=== PATIENT | male | born 1970 | race Caucasian/White ===

== ENCOUNTER 2019-05-15 15:35 | Outpatient (CLI) | payer OTHER, SELFPAY ==
[2019-05-15 15:48] LABS: Basophils Percent Auto 0.6 % (0.2-1.2); Eosinophils Absolute Auto 0.2 K/mm3 (0-0.3); Eosinophils Percent Auto 2.5 % (0-4.4); Hemoglobin 15.1 g/dL (14.0-18.0); Immature Granulocyte Absolute 0.06 K/mm3 (0.00-0.031); Immature Granulocyte Percent A 0.9 % (0-0.5); Lymphocytes Absolute Auto 1.91 K/mm3 (0.9-3.2); Lymphocytes Percent Auto 29.5 % (18.3-44.2); Mean Corpuscular HGB Conc 35.1 g/dl (32-36); Mean Corpuscular Hemoglobin 32.6 pg (26-34); Mean Corpuscular Volume 92.9 fl (80-100); Mean Platelet Volume 9.6 fl (7.4-10.4); Monocytes Absolute Auto 0.7 K/mm3 (0.1-0.6); Monocytes Percent Auto 10.3 % (2.6-8.5); Neutrophils Absolute Auto 3.6 K/mm3 (1.3-6.7); Neutrophils Percent Auto 56.2 % (45.5-73.1); Platelet Count Result 152 k/mm3 (150-375); Red Blood Count 4.63 M/mm3 (4.6-6.20); Red Cell Distribution Width 12.5 % (11.5-14.5); White Blood Count 6.5 K/mm3 (4.5-10.0)
[2019-05-15 16:36] LABS: Iron 124 ug/dL (49-181)
[2019-05-15 16:39] LABS: Alanine Aminotransferase 21 U/L (4-50); Albumin Level 4.5 g/dL (3.5-5.1); Alkaline Phosphatase 47 U/L (38-126); Aspartate Amino Transferase 25 U/L (17-59); Bilirubin,Total 0.9 mg/dL (0.2-1.3); Blood Urea Nitrogen 16 mg/dL (9-20); Carbon Dioxide 27 mmol/L (22-30); Chloride 99 mmol/L (98-107); Estimated Glomerular Filt Rate > 60; Glucose 91 mg/dL (75-110); Lactate Dehydrogenase 381 U/L (313-618); Potassium 4.4 mmol/L (3.4-5.0); Sodium 137 mmol/L (137-145)
[2019-05-15 16:50] LABS: Percent Iron Saturation 40 % (20-50)
[2019-05-18 23:16] LABS: Platelet Antibody, Direct IgG NEGATIVE (NEGATIVE)
== END 2019-05-15 15:36 | disposition home or self-care (01) ==
LOC: ANHLAB 15:37
PROVIDERS: PCP Family Medicine; Visit Provider Internal Medicine Hematology & Oncology
DX: D69.59 Other secondary thrombocytopenia (principal)
CPT/HCPCS: 36415; 80053; 82607; 82728; 83540; 83550; 83615; 85025; 86023

== ENCOUNTER 2019-05-25 09:16 | Outpatient (CLI) | payer OTHER, SELFPAY ==
--- NOTE | ~2019-05-25 | US_ITS ---
EXAMINATION: US abdomen complete DATE: 05/25/2019 09:47 INDICATION: Thrombocytopenia TECHNIQUE: Multiple grayscale and Doppler ultrasound images of the abdomen were obtained. COMPARISON: None available FINDINGS: The head and and body of the pancreas are normal. The pancreatic tail is obscured by bowel gas. The liver is normal with normal echogenicity and echotexture. No surface nodularity. Normal hep atopetal flow in the main portal vein. The gallbladder is normal with no abnormal wall thickening, pe richolecystic fluid or stones. The normal common bile duct measures 6 mm. There was no sonographic Mu rphy sign. The visualized portions of the aorta and inferior vena cava are normal. The right kidney measures 11.2 x 4.7 x 5.2 cm. The left kidney measures 12.9 x 5.9 x 5.7 cm. The kidn eys demonstrate normal parenchymal echogenicity. There is no hydronephrosis. The mildly enlarged sple en measures 13.5 cm. IMPRESSION: 1. Mild splenomegaly of unclear significance. Reviewed, dictated and finalized at location A.
== END 2019-05-25 09:17 | disposition home or self-care (01) ==
PROVIDERS: PCP Family Medicine; Visit Provider Internal Medicine Hematology & Oncology
DX: D69.59 Other secondary thrombocytopenia (principal)
CPT/HCPCS: 76700

== ENCOUNTER 2019-08-20 17:54 | Outpatient (CLI) | payer OTHER, SELFPAY ==
[2019-08-26 05:15] LABS: Testosterone Free 35.6 pg/mL (46.0-224.0)
== END 2019-08-20 17:55 | disposition home or self-care (01) ==
PROVIDERS: PCP Family Medicine; Visit Provider Family Medicine
DX: R79.89 Other specified abnormal findings of blood chemistry (principal)
CPT/HCPCS: 36415; 84402

== ENCOUNTER 2021-03-25 10:25 | Outpatient (CLI) | payer OTHER, SELFPAY ==
--- NOTE | ~2021-03-25 | XR_ITS ---
EXAMINATION: XR shoulder RT min 2V DATE: 03/25/2021 10:39 INDICATION: Right shoulder pain. TECHNIQUE: 4 views of right shoulder were obtained. COMPARISON: None. FINDINGS: Bone alignment is normal. No fracture. There is mild osteoarthritis of glenohumeral joint a nd acromioclavicular joint. IMPRESSION: 1. Mild polyarticular osteoarthritis. Reviewed, dictated and finalized at location B. ECURITY OFFICER
--- NOTE | ~2021-03-25 | XR_ITS ---
EXAMINATION: XR shoulder LT min 2V DATE: 03/25/2021 10:39 INDICATION: Left shoulder pain. TECHNIQUE: 4 views of left shoulder were obtained. COMPARISON: None. FINDINGS: Bone alignment is normal. No fracture. There is mild osteoarthritis of glenohumeral joint a nd acromioclavicular joint. IMPRESSION: 1. Mild polyarticular osteoarthritis. Reviewed, dictated and finalized at location B. ATIONS INSPECTOR
== END 2021-03-25 10:26 ==
PROVIDERS: Visit Provider Physician Assistant
DX: M25.519 Pain in unspecified shoulder (principal); M19.012 Primary osteoarthritis, left shoulder; M19.011 Primary osteoarthritis, right shoulder
CPT/HCPCS: 73030

== ENCOUNTER 2022-09-12 13:12 | Observation (INO) | payer OTHER, SELFPAY ==
--- NOTE | ~2022-09-12 | XR_ITS ---
EXAMINATION: XR chest 2V DATE: 09/12/2022 14:07 INDICATION: Shortness of breath while walking TECHNIQUE: PA and lateral views of the chest were obtained. COMPARISON: Chest radiograph dated 04/01/2019 FINDINGS: Opacities at the lingula which could represent atelectasis and/or pneumonia. No pulmonary edema, pleu ral effusion or pneumothorax. Heart size is normal. IMPRESSION: 1. Lingular opacities which could represent atelectasis or pneumonia. Reviewed, dictated and finalized at location B.
--- NOTE | ~2022-09-12 | US_ITS ---
EXAMINATION: US carotid duplex BI DATE: 09/14/2022 08:04 INDICATION: Lightheadedness. TECHNIQUE: Grayscale, color Doppler, and pulsed Doppler images of the cervical carotid arteries were obtained. The degree of vessel stenosis is placed in one of the following categories: normal, <50%, 5 0-69%, >=70% but less than near-occlusion, near-occlusion, or total occlusion. Note that percent sten osis relative to normal distal artery lumen diameter is indirectly measured from velocity measurement s as described by Clifton, et al. Radiology 2003; 229:340-346. COMPARISON: None. FINDINGS: RIGHT: The right common carotid artery (CCA) peak systolic velocity (PSV) is 100 cm/s. The right internal ca rotid artery (ICA) PSV is 74 cm/s. The right ICA end-diastolic velocity (EDV) is 34 cm/s. The right I CA/CCA PSV ratio is 0.7. Grayscale and color Doppler images yield an estimate of <50% diameter reduct ion from plaque in the ICA. There is antegrade flow in the right vertebral artery. LEFT: The left CCA PSV is 110 cm/s. The left ICA PSV is 97 cm/s. The left ICA EDV is 37 cm/s. The left ICA/ CCA PSV ratio is 0.9. Grayscale and color Doppler images yield an estimate of <50% diameter reduction from plaque in the ICA. There is antegrade flow in the left vertebral artery. IMPRESSION: 1. <50% stenosis in the right internal carotid artery. 2. <50% stenosis in the left internal carotid artery. Reviewed, dictated and finalized at location A.
[2022-09-12 13:36] VITALS: BP 138/83; PULSE 85; RESP 20; TEMP 36.4; O2SAT 99
--- NOTE | 2022-09-12 13:41 | ECG_ITS ---
Measurements Intervals Roberts Rate: 77 P: 45 CO: 154 QRS: 30 QRSD: 90 T: 31 QT: 342 QTc: 388 Interpretive Statements SINUS RHYTHM NORMAL ECG COMPARED TO ECG 02/15/2019 17:36:11 SINUS RHYTHM NOW PRESENT Electronically Signed On 09-12-2022 13:59:20 CDT by Ok Bhatt D.O.
[2022-09-12 14:00] LABS: Basophils Percent Auto 0.6 % (0.2-1.2); Eosinophils Absolute Auto 0.1 K/mm3 (0-0.3); Eosinophils Percent Auto 1.1 % (0-4.4); Hematocrit 45.1 % (42.0-52.0); Immature Granulocyte Absolute 0.04 K/mm3 (0.00-0.031); Immature Granulocyte Percent A 0.6 % (0-0.5); Lymphocytes Absolute Auto 1.35 K/mm3 (0.9-3.2); Mean Corpuscular HGB Conc 35.5 g/dl (32-36); Mean Corpuscular Hemoglobin 31.5 pg (26-34); Mean Corpuscular Volume 88.8 fl (80-100); Mean Platelet Volume 9.9 fl (7.4-10.4); Monocytes Absolute Auto 0.4 K/mm3 (0.1-0.6); Monocytes Percent Auto 6.1 % (2.6-8.5); Neutrophils Absolute Auto 4.5 K/mm3 (1.3-6.7); Neutrophils Percent Auto 70.6 % (45.5-73.1); Platelet Count Result 161 k/mm3 (150-375); Red Blood Count 5.08 M/mm3 (4.6-6.20); Red Cell Distribution Width 12.4 % (11.5-14.5); White Blood Count 6.4 K/mm3 (4.5-10.0)
[2022-09-12 14:09] LABS: Alanine Aminotransferase 39 U/L (6-50); Albumin Level 4.6 g/dL (3.5-5.1); Alkaline Phosphatase 51 U/L (38-126); Anion Gap 8 mmol/L (8-16); Aspartate Amino Transferase 30 U/L (17-59); Blood Urea Nitrogen 13 mg/dL (9-20); Calcium 9.2 mg/dL (8.4-10.2); Carbon Dioxide 25 mmol/L (22-30); Chloride 106 mmol/L (98-107); Estimated CRCL calculation 90 ml/min; Estimated Glomerular Filt Rate > 60; Glucose 132 mg/dL (65-110); Potassium 4.5 mmol/L (3.4-5.0); Sodium 139 mmol/L (137-145)
--- NOTE | 2022-09-12 15:22 | ED.SOB ---
HPI - SOB/Dyspnea General Chief Complaint: Shortness of Breath/Dyspnea Stated Complaint: sob Time Seen by Provider: 09/12/22 15:01 History of Present Illness HPI Narrative: Patient is a 52-year-old male with a history of hypertension presenting with exertional shortness of breath. Patient states that he is very active at baseline. He was walking some trails yesterday when he suddenly started to feel strange. States that he became very short of breath and lightheaded. States that he felt that he was about to . He called 911 who advised him to try to rest while they attempted to find him on the trail. States that he started to walk slowly towards his house and he started to feel better so he declined EMS transport. States that he checked his vital signs when he got home and his heart rate was around 130 and stayed around 130 for at least an hour. States that he rested for the rest of the day and felt okay. This morning, he and his went on a very short walk and he again had recurrence of severe exertional shortness of breath and lightheadedness. They went back to the house decided to come in for evaluation. No chest pain, cough, fevers, abdominal pain, back pain, numbness or weakness, vomiting, diarrhea, leg swelling. He states that he does have a strong family history of cardiac disease. Related Data Home Medications Medication Instructions Recorded Confirmed aspirin 81 mg tablet,delayed 81 mg PO DAILY 12/31/20 09/12/22 release (Adult Low Dose Aspirin) cholecalciferol (vitamin D3) 25 25 mcg PO DAILY 12/31/20 09/12/22 mcg (1,000 unit) capsule nnvdjsxx-fymmzyku-rjbvh acid 400 1 tablet PO DAILY 12/31/20 09/12/22 mcg-vit K 20 mcg-lycop 300 mcg tablet (One-A-Day Men's Multivitamin) Allergies Allergy/AdvReac Type Severity Reaction Status Date / Time No Known Allergies Allergy Mild Verified 09/12/22 18:05 Review of Systems Review of Systems: All systems reviewed & are unremarkable except as noted in HPI and below PMFSH Past Medical History Medical History Acid reflux Acute bilateral low back pain without sciatica Arthritis DJD of shoulder Erectile dysfunction Hypertension Left shoulder pain Palpitations Right shoulder pain Surgical History Surgical History No pertinent past surgical history Family History Family History (Updated 09/12/22 @ 17:57 by Karlene Bhatti RN) Sibling Family history of cardiovascular disease Diabetes mellitus Family history of coronary artery disease Arthritis Father Family history of cardiovascular disease Acute myocardial infarction Hypertension Heart disease Son Asthma Social History Social History Smoking packs per day: 0.5 Smoking cigarettes per day: 10.0 Years smoked: 2 Smoking pack-years: 1.00 Smoking status: Former smoker Tobacco type: cigarettes Second hand tobacco smoke exposure: No Smoking end date: 03/13/93 Alcohol intake: current Drinks per week: 12 Alcohol use details: Patient states he drinks maybe 7 drinks per week including the weekends. Substance use: never Substance use type: does not use Lack of Transportation: No Lack of Food: Never True Current Housing: I Have Housing Concerned About Future Housing: No Difficulty Paying Gas/Electric Bills: No Difficulty Paying for Meds: No Currently Unemployed: No Education: Associate Degree Difficulty w/ Childcare or Family Care: No Additional living arrangements comments: Daughter lives at home with patient. Spiritual care concerns: No Exam Narrative: GENERAL: Well-appearing, well-nourished, and in no acute distress. Pleasant and cooperative HEAD: Normocephalic, atraumatic. EYES: PERRLA and EOMI. ENT: Nares clear, no rhinorrhea or epistaxis. Mucous membranes mo
[2022-09-12] MEDS: SODIUM CHLORIDE 0.9% IV 1,000 ML 999 ML IV CONT (15:55)
[2022-09-12 16:25] VITALS: BP 133/77; PULSE 78; RESP 16; O2SAT 100
[2022-09-12 16:25] LABS: Magnesium 2.2 mg/dL (1.6-2.3)
[2022-09-12 16:27] LABS: INR 1.1
[2022-09-12 16:32] LABS: D Dimer 0.27 ug/mL (<0.48)
[2022-09-12 16:38] LABS: NT Pro B Type Natriuretic Pept < 20 pg/mL (19.9-100); Troponin I < 0.012 ng/mL (0.000-0.034)
[2022-09-12 16:53] LABS: Troponin I < 0.012 ng/mL (0.000-0.034)
--- NOTE | 2022-09-12 17:13 | PC.NURSE ---
Meal tray ordered.
[2022-09-12 17:45] VITALS: BMI 30.2
--- NOTE | 2022-09-12 17:45 | PC.NURSE ---
This patient, Cole Hernandez, was admitted to 3 [facility] Surg Room 312-01. Patient/family oriented to hospital policies and general routines including ID bracelet, bed and alarms, visiting hours, pain management, procedures, bathroom and other care routines, personal items, smoking policy, room service/diet, and visiting hours. Information on how to activate the Rapid Response Team has been discussed. Patient/Family are encouraged to report perceived risks to care and to ask questions if they do not understand what they are told or what they should do.
[2022-09-12 19:03] VITALS: BP 147/81; PULSE 66; RESP 20; TEMP 36.2; O2SAT 98
[2022-09-12 20:00] VITALS: PULSE 74
[2022-09-12 20:16] LABS: Troponin I 0.014 ng/mL (0.000-0.034)
[2022-09-12 21:17] VITALS: BP 142/85; PULSE 70; RESP 18; TEMP 36.2; O2SAT 97
[2022-09-12 22:45] VITALS: O2SAT 96
--- NOTE | 2022-09-12 22:50 | PM.IMHP ---
H&P: HPI History of Present Illness Date/Time: 09/12/22 19:00 Chief Complaint: Shortness of breath and racing heart. Narrative: This is a very pleasant 52-year-old gentleman with hypertension who presented to the emergency department via private vehicle from home for evaluation of shortness of breath and racing heart. The patient provides the following history. His significant other provides additional information, with the patient's permission. He is very active at baseline and he in his girlfriend frequently go on miles long walks. Yesterday after he sat out for 3 mi walk and about 3/4 of a mi into the walk he began to feel unwell with vague symptoms ?I just felt off.? He felt lightheaded, his heart was racing and pounding, and his breathing was shallow and rapid. It came on so suddenly and he was worried that he was having a heart attack so he called 911. He was on a walking trail and it was difficult for them to locate him; he was able to get off of the trail and to his subdivision at which time he felt better. He declined EMS at that time and went home to rest. He checked his vital signs when he got home and blood pressure was 144/91. His pulse was regular but in the 130s which is highly unusual for him. Baseline heart rate is about 60 and when walking usually it is not over 80-90 beats per minute. His girlfriend came over after the event and she reports that he looked weak and pale. With rest he felt a bit better this morning and in fact they decided to try a walk this morning however within a quarter of a mi he started to have the same symptoms and they decided to come in for evaluation. With further questioning he has had periods of lightheadedness over the past week, mainly with position changes or bending over. They have not been significant enough for him to pay attention until now. 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 His father in his early 60s from an [place] with cardiomyopathy. Several years ago the patient has stress test which was reportedly unremarkable. He denies cardiac dysrhythmia and has not been having sensations of irregular heartbeat. He reports that he sleeps well at nighttime however girlfriend states he snores and at times she hears and gasping for air. He has known history of thyroid disease or sleep apnea. Weight has remained stable. He denies significant caffeine and alcohol use. Vital signs have been stable since arrival to the emergency department. CMP, CBC, troponin, and proBNP were unremarkable. Chest x-ray showed lingular opacities which could represent atelectasis or pneumonia. EKG showed a sinus rhythm without ST segment changes. He is being admitted in this setting for closer monitoring. Review of Systems Review of Systems: Twelve systems were reviewed and are negative except for as per HPI. [facility] Past Medical History Medical History (Updated 09/12/22 @ 23:04 by Ashly Perkins PA-C) Acid reflux Arthritis Hypertension Surgical History Surgical History No pertinent past surgical history Family History Family History Sibling Family history of cardiovascular disease Diabetes mellitus Family history of coronary artery disease Arthritis Father Family history of cardiovascular disease Acute myocardial infarction Hypertension Heart disease Son Asthma Social History Social History (Updated 09/12/22 @ 22:59 by Ashly Perkins PA-C) Social History: Surrogate medical decision maker: Nettie Salgado, significant other. Code status: Full code. Smoking packs per day: 0.5 Smoking cigarettes per day: 10.0 Years smoked: 2 Smoking pack-years: 1.00 Smoking status: Former smoker Tobacco type: cigarettes Second hand tobacco smoke exposure: No Smoking end da
[2022-09-13] VITALS (10 sets, daily range): BP systolic 117–140; BP diastolic 73–80; PULSE 54–92; RESP 14–18; TEMP 36.2–36.6; O2SAT 96–98
--- NOTE | 2022-09-13 | ECHO_ITS ---
Patient Info Name: Cole Hernandez Age: 52 years : 1970 Gender: Male Ht: 74 in Wt: 235 lbs BSA: 2.38 m2 HR: 77 bpm BP: 117 / 73 mmHg Heart Rhythm: Sinus Rhythm Technical Quality: Fair Exam Date: 09/13/2022 7:32 AM Exam Location: [facility] Patient Status: Inpatient Admit Date: 09/12/2022 Staff Ordering Physician: Ashly Perkins PA-C Pathologist: Mikaela Real RDCS Attending Provider: Shanta Burger DO Referring Physician: Maddie HERNANDEZ; Exam Type: CA echo dop color flow w con Study Info Indications R00.2 - Palpitations R55 - Syncope and collapse Complete two-dimensional, color flow and Doppler transthoracic echocardiogram is performed with contrast to opacify the left ventricle and to improve the deliniation of the left ventricle endocardial borders. Contrast/Agitated Saline Contrast/Ag. Saline: Definity Amount: 2.00 ml Administered By: Mikaela Real RDCS Existing IV Access: Yes IV Access Condition: patent with no signs of infiltration Summary 1. Left ventricular chamber dimension is normal. 2. Left ventricular systolic function is hyperdynamic, estimated at >70%. 3. There is no increased left ventricular wall thickness. 4. The left ventricular diastolic function is normal. 5. There is mild tricuspid valve regurgitation. Left Ventricle Left ventricular chamber dimension is normal. Left ventricular systolic function is hyperdynamic, estimated at >70%. There is no increased left ventricular wall thickness. The left ventricular diastolic function is normal. Right Ventricle Right ventricular chamber dimension is normal. Right ventricular systolic function is normal. Left Atria Left atrial chamber dimension is normal. Right Atria Right atrial chamber dimension is normal. Atrial Septum Intact interatrial septum visualized by color flow imaging. Aortic Valve The aortic valve is trileaflet. There is mild aortic valve sclerosis. There is no aortic valve stenosis. There is trace aortic valve regurgitation. Pulmonic Valve The pulmonic valve is normal. There is no pulmonic valve stenosis. There is trace pulmonic regurgitation. Mitral Valve The mitral valve has normal leaflets. There is no mitral valve stenosis. There is trace mitral valve regurgitation. Tricuspid Valve The tricuspid valve leaflets are normal. There is no significant tricuspid valve stenosis. There is mild tricuspid valve regurgitation. No pulmonary hypertension, estimated pulmonary arterial systolic pressure is 24 mmHg. Pericardium/Pleural The pericardium appears normal. There is no pericardial effusion. Inferior Vena Cava Normal inferior vena cava with >50% collapse upon inspiration consistent with normal right atrial pressure, 10 mmHg. Aorta The aortic root size at the sinus of Valsalva is normal. Left Ventricular Outflow Tract Name Value Normal LVOT 2D LVOT Diameter 1.95 cm LVOT Doppler LVOT Peak Gradient 15 mmHg LVOT Mean Gradient 8 mmHg LVOT VTI 39.02 cm LVOT VTI/AV VTI Ratio 1.11 LVOT Stroke Volume
[2022-09-13 06:27] LABS: Hematocrit 41.9 % (42.0-52.0); Hemoglobin 14.6 g/dL (14.0-18.0); Immature Platelet Fraction Pct 3.4 % (0.9-11.2); Mean Corpuscular HGB Conc 34.8 g/dl (32-36); Mean Corpuscular Hemoglobin 31.7 pg (26-34); Mean Corpuscular Volume 91.1 fl (80-100); Mean Platelet Volume 9.6 fl (7.4-10.4); Platelet Count Result 127 k/mm3 (150-375); Red Cell Distribution Width 12.6 % (11.5-14.5); White Blood Count 4.4 K/mm3 (4.5-10.0)
[2022-09-13 06:50] LABS: Anion Gap 6 mmol/L (8-16); Blood Urea Nitrogen 13 mg/dL (9-20); Calcium 8.6 mg/dL (8.4-10.2); Carbon Dioxide 29 mmol/L (22-30); Chloride 105 mmol/L (98-107); Estimated CRCL calculation 96 ml/min; Estimated Glomerular Filt Rate > 60; Glucose 107 mg/dL (65-110); Magnesium 2.2 mg/dL (1.6-2.3); Potassium 4.9 mmol/L (3.4-5.0); Sodium 140 mmol/L (137-145)
[2022-09-13] MEDS: PERFLUTREN LIPID MICROSPHERES 1.5 ML VIAL DILUTED TO 10 ML TOTAL VOLUME IV PUSH (08:00)
--- NOTE | 2022-09-13 08:23 | PM.CNCAR ---
Assessment and Plan Assessment and plan (1) Lightheadedness: Code(s): R42 - Dizziness and giddiness Status: Acute Assessment and Plan: Uncertain etiology. Possibly dehydration versus high blood pressure. Cannot exclude arrhythmia. Continue inpatient telemetry. 2D echocardiogram with Dopplers ordered and will be reviewed. Outpatient civil engineering assistant is recommended. Will check bilateral carotid artery ultrasound also (2) Primary hypertension: Code(s): I10 - Essential (primary) hypertension Status: Acute Assessment and Plan: Continue lisinopril for now (3) Exertional dyspnea: Code(s): R06.09 - Other forms of dyspnea Status: Acute Assessment and Plan: Cannot exclude angina. Echo is pending. I will order an exercise stress echo for tomorrow. (4) Family history of coronary artery disease: Code(s): Z82.49 - Family history of ischemic heart disease and other diseases of the circulatory system Status: Acute (5) Palpitations: Code(s): R00.2 - Palpitations Status: Acute Assessment and Plan: Outpatient civil engineering assistant History of Present Illness History of Present Illness Consult date/time: 09/13/22 08:23 Requesting physician: Chiara Hendrix MD Consult reason: Other (Exertional dyspnea) Reason For Visit: Exertional Dyspnea Narrative: Reason consultation: Exertional dyspnea Requesting provider: Dr. Hendrix Date of service 09/13/2022 History patient is a 52-year-old who has a history of high blood pressure and family history of coronary disease. He did see Dr. Castellanos several years ago and had a negative stress test performed at that time. He presented hospital because of a couple day history of exertional symptoms. And feeling off. Two days ago he started to walk on his sub division into a 2 mi loop. During that walk he felt lightheaded and short of breath. He did not feel right and he turned around started to walk back. He felt like he could pass out now lasted for about 5 seconds. He did call 911 but at that point he was close to home and he decided not to pursue emergency treatment at that point. However he arrived home his blood pressure is 144/91 heart rate was 129. Gradually over time his heart rate did improve. The rest of that day he did not do much activity and felt relatively okay. There was appear a time when she could not focus during the initial event. The next day he had another similar episode also while walking. His color was reportedly also poor as he looked pale. Blood pressure 166/101 heart rate was 62 at that time. He did have shortness of breath. No chest pain, syncope, paroxysmal nocturnal dyspnea. No significant edema. Because he had 2 710s on [id number] days, he decided to come to the hospital floor for evaluation. EKG is normal. Troponins are unremarkable. Review of Systems Review of Systems: All systems reviewed & are unremarkable except as noted in HPI and below Constitutional: Constitutional: Denies body ache(s) Eyes: Eyes: Denies blurry vision ENT: Reports Normal hearing present Cardiovascular: Cardiovascular: Denies chest pain, Reports lightheadedness and Reports palpitations Respiratory: Respiratory: Denies chest congestion and Reports dyspnea on exertion Gastrointestinal: Gastrointestinal: Denies abdominal pain Genitourinary: Genitourinary: Denies hematuria Musculoskeletal: Musculoskeletal: Denies back pain Integumentary/Breasts: Skin/Breast: Denies rash Neurologic: Denies abnormal gait Psychiatric: Psychiatric: Reports confusion Endocrine: Endocrine: Denies excessive sweating Hematologic/Lymphatic: Hematologic/Lymphatic: Denies easy bleeding Allergic/Immunologic: Allergic/Immunologic: Denies GI upset with certain foods PMFSH Past Medical History Medical History Acid reflux Arthritis Hypertension Surgica
[2022-09-13] MEDS: lisinopriL 20 MG TABLET 40 MG PO (08:33)
[2022-09-13] MEDS: ASPIRIN 81 MG ENTERIC TABLET PO (08:33)
[2022-09-13] MEDS: THERAPEUTIC MULTIVITAMINS/MINERALS TAB (*BKC) 1 TABLET PO (08:33)
[2022-09-13] MEDS: CHOLECALCIFEROL 1,000 UNITS TABLET 1000 UNITS PO (08:34)
--- NOTE | 2022-09-13 09:18 | PM.IMPN ---
Progress Note: A&P Assessment and Plan (1) Lightheadedness: Code(s): R42 - Dizziness and giddiness Status: Acute (2) Exertional dyspnea: Code(s): R06.09 - Other forms of dyspnea Status: Acute (3) Hypertension: Code(s): I10 - Essential (primary) hypertension Status: Acute (4) Suspected sleep apnea: Code(s): R29.818 - Other symptoms and signs involving the nervous system Status: Acute Plan The patient presented to the emergency department for evaluation of shortness of breath, lightheadedness, and racing heart while walking the last couple of days as per HPI. Labs, imaging, EKG, and all reports were personally reviewed. Etiology of his symptoms is not entirely clear. 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 Labs do not seem to indicate that he is dehydrated either. Is possible that he may have a cardiac dysrhythmia causing his symptoms and he is being monitored on telemetry; it may be prudent to send him home with an event monitor on discharge. Echocardiogram and carotid Doppler ultrasounds have been ordered for further evaluation. Cardiology was consulted by the ED physician and their input is greatly appreciated. Blood pressures were reviewed and they have been stable. Apnea link ordered to screen for sleep apnea given concerns for the same as detailed in HPI. His home medications will be reviewed and resumed as appropriate. 09/13/2022:Hypertension presented with exertional shortness of breath. Was tachycardic at 130s with recurrence of severe exertional shortness of breath. Along with lightheadedness. No prior history of coronary artery disease. Former smoker. Vitals stable in the ER. EKG without acute ST-T changes. Labs unremarkable. Troponin negative. Chest x-ray with lingular opacities may represent atelectasis or pneumonia. History of stress test in the past which was negative. Echo with no significant valvular abnormality normal ejection fraction. Carotid Doppler and event monitor discharge cardiology consulted apnea link with AHI of 10.3. Need to rule out sleep apnea and needs sleep study as an outpatient basis. Stress echo planned in a.m. Subjective Date/time seen: 09/13/22 09:18 Interval history: Hypertension presented with exertional shortness of breath. Was tachycardic at 130s with recurrence of severe exertional shortness of breath. Along with lightheadedness. No prior history of coronary artery disease. Former smoker. Vitals stable in the ER. EKG without acute ST-T changes. Labs unremarkable. Troponin negative. Chest x-ray with lingular opacities may represent atelectasis or pneumonia. History of stress test in the past which was negative. Echo carotid Doppler and event monitor discharge cardiology consulted apnea link ordered. Stress echo planned in a.m. Review of Systems Review of Systems: All systems reviewed & are unremarkable except as noted in HPI and below Exam Narrative: GENERAL: The patient is well developed, not in acute distress HEENT: Nonicteric sclerae, PERRLA, EOMI. Oropharynx clear. Moist mucous membranes. Conjunctivae appear well perfused. CHEST: Chest wall is nontender. HEART: Regular rate and rhythm without murmur, rubs, or gallops LUNGS: Clear to auscultation bilaterally. no respiratory distress ABDOMEN: Soft, positive bowel sounds, non-tender, no organomegaly. SKIN: No rash, no excessive bruising, petechiae, or purpura. NEUROLOGIC: Cranial nerves II-XII intact, alert and oriented x 3, no gross motor deficits EXTREMITIES: no edema, cyanosis or clubbing Objective Data Vital Signs Vital Signs: Vital Signs - 24 hr 09/12/22 13:36 09/12/22 16:25 09/12/22 17:45 Temperature 97.6 F Pulse Rate 85 78 Respiratory Rate 20 16 Blood Pressure 138/83 133/77 Pulse Oxime
[2022-09-14] VITALS: PULSE 60
--- NOTE | 2022-09-14 | EST_ITS ---
Patient Info Name: Cole Hernandez Age: 52 years : 1970 Gender: Male Ht: 74 in Wt: 235 lbs BSA: 2.38 m2 HR: 60 bpm BP: 130 / 87 mmHg Heart Rhythm: Sinus Rhythm Technical Quality: Good Exam Date: 09/14/2022 9:44 AM Exam Location: [facility] Patient Status: Outpatient Admit Date: 09/12/2022 Staff Ordering Physician: Luther Ortega MD Account Leader: Mallika Miller RDCS Attending Provider: Shanta Burger DO Exam Type: CA stress echo Study Info Treadmill exercise stress echocardiogram is performed. Summary 1. Good functional capacity, achieving 10.3 METs of workload. 2. No abnormal ST/T wave changes diagnostic of ischemia with exercise. 3. Hypertensive blood pressure response with exercise. 4. Stress echocardiogram is normal. No evidence of ischemia. Stress Echo Findings Left Ventricle Normal left venticular systolic function with no regional wall motion abnormalities noted at rest. Overall global left ventricular systolic function Improved post stress. Normal augmentation of all wall segments without evidence of ischemia with stress. Protocol: [place] Stress ECG Details Stage: REST Duration (min): 7 min : 43 sec Speed (mph): 0.0 Grade (%): 0 HR (bpm): 77 SBP (mmHg): 130 DBP (mmHg): 87 METS: --- Stage: REST Duration (min): 10 min : 33 sec Speed (mph): 0.0 Grade (%): 0 HR (bpm): 73 SBP (mmHg): 130 DBP (mmHg): 87 METS: --- Stage: STAGE 1 Duration (min): 1 min : 0 sec Speed (mph): 1.7 Grade (%): 10 HR (bpm): 88 SBP (mmHg): 130 DBP (mmHg): 87 METS: --- Stage: STAGE 1 Duration (min): 2 min : 0 sec Speed (mph): 1.7 Grade (%): 10 HR (bpm): 100 SBP (mmHg): 130 DBP (mmHg): 87 METS: --- Stage: STAGE 1 Duration (min): 3 min : 0 sec Speed (mph): 1.7 Grade (%): 10 HR (bpm): 101 SBP (mmHg): 146 DBP (mmHg): 74 METS: --- Stage: STAGE 2 Duration (min): 1 min : 0 sec Speed (mph): 2.5 Grade (%): 12 HR (bpm): 109 SBP (mmHg): 146 DBP (mmHg): 74 METS: --- Stage: STAGE 2 Duration (min): 2 min : 0 sec Speed (mph): 2.5 Grade (%): 12 HR (bpm): 118 SBP (mmHg): 155 DBP (mmHg): 76 METS: --- Stage: STAGE 2 Duration (min): 3 min : 0 sec Speed (mph): 2.5 Grade (%): 12 HR (bpm): 120 SBP (mmHg): 155 DBP (mmHg): 76 METS: --- Stage: STAGE 3 Duration (min): 1 min : 0 sec Speed (mph): 3.4 Grade (%): 14 HR (bpm): 134 SBP (mmHg): 164 DBP (mmHg): 78 METS: --- Stage: STAGE 3 Duration (min): 2 min : 0 sec Speed (mph): 3.4 Grade (%): 14 HR (bpm): 143 SBP (mmHg): 164 DBP (mmHg): 78 METS: --- Stage: STAGE 3 Duration (min): 3 min : 0 sec Speed (mph): 3.4 Grade (%): 14 HR (bpm): 148 SBP (mmHg): 198 DBP (mmHg): 80 METS: --- Stage: STAGE 4 Duration (min): 0 min : 1 sec Speed (mph): 0.0 Grade (%): 0 HR (bpm): 148 SBP (mmHg): 198 DBP (mmHg): 80 METS: ---
[2022-09-14 04:00] VITALS: PULSE 55
[2022-09-14 05:34] LABS: Basophils Percent Auto 0.8 % (0.2-1.2); Eosinophils Absolute Auto 0.2 K/mm3 (0-0.3); Eosinophils Percent Auto 4.4 % (0-4.4); Hematocrit 43.2 % (42.0-52.0); Hemoglobin 15.1 g/dL (14.0-18.0); Immature Granulocyte Absolute 0.06 K/mm3 (0.00-0.031); Immature Granulocyte Percent A 1.3 % (0-0.5); Immature Platelet Fraction Pct 3.7 % (0.9-11.2); Lymphocytes Absolute Auto 1.54 K/mm3 (0.9-3.2); Lymphocytes Percent Auto 32.1 % (18.3-44.2); Mean Corpuscular Hemoglobin 31.9 pg (26-34); Mean Corpuscular Volume 91.1 fl (80-100); Mean Platelet Volume 9.8 fl (7.4-10.4); Monocytes Absolute Auto 0.5 K/mm3 (0.1-0.6); Neutrophils Absolute Auto 2.5 K/mm3 (1.3-6.7); Neutrophils Percent Auto 51.4 % (45.5-73.1); Platelet Count Result 135 k/mm3 (150-375); Red Blood Count 4.74 M/mm3 (4.6-6.20); Red Cell Distribution Width 12.5 % (11.5-14.5); White Blood Count 4.8 K/mm3 (4.5-10.0)
[2022-09-14 05:40] LABS: Alanine Aminotransferase 38 U/L (6-50); Albumin Level 3.8 g/dL (3.5-5.1); Alkaline Phosphatase 44 U/L (38-126); Anion Gap 6 mmol/L (8-16); Aspartate Amino Transferase 27 U/L (17-59); Bilirubin,Total 0.4 mg/dL (0.2-1.3); Blood Urea Nitrogen 12 mg/dL (9-20); Calcium 8.6 mg/dL (8.4-10.2); Carbon Dioxide 26 mmol/L (22-30); Chloride 106 mmol/L (98-107); Estimated CRCL calculation 96 ml/min; Estimated Glomerular Filt Rate > 60; Glucose 111 mg/dL (65-110); Magnesium 2.1 mg/dL (1.6-2.3); Potassium 4.5 mmol/L (3.4-5.0); Sodium 138 mmol/L (137-145)
[2022-09-14 06:00] VITALS: BP 141/94; PULSE 62; RESP 14; TEMP 35.8; O2SAT 100
[2022-09-14 08:00] VITALS: PULSE 70
[2022-09-14] MEDS: CHOLECALCIFEROL 1,000 UNITS TABLET 1000 UNITS PO (10:44)
[2022-09-14] MEDS: ASPIRIN 81 MG ENTERIC TABLET PO (10:44)
[2022-09-14] MEDS: lisinopriL 20 MG TABLET 40 MG PO (10:44)
[2022-09-14] MEDS: THERAPEUTIC MULTIVITAMINS/MINERALS TAB (*BKC) 1 TABLET PO (10:45)
--- NOTE | 2022-09-14 10:45 | PM.IMPN ---
Progress Note: A&P Assessment and Plan (1) Lightheadedness: Code(s): R42 - Dizziness and giddiness Status: Acute (2) Exertional dyspnea: Code(s): R06.09 - Other forms of dyspnea Status: Acute (3) Hypertension: Code(s): I10 - Essential (primary) hypertension Status: Acute (4) Suspected sleep apnea: Code(s): R29.818 - Other symptoms and signs involving the nervous system Status: Acute Plan The patient presented to the emergency department for evaluation of shortness of breath, lightheadedness, and racing heart while walking the last couple of days as per HPI. Labs, imaging, EKG, and all reports were personally reviewed. Etiology of his symptoms is not entirely clear. 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 Labs do not seem to indicate that he is dehydrated either. Is possible that he may have a cardiac dysrhythmia causing his symptoms and he is being monitored on telemetry; it may be prudent to send him home with an event monitor on discharge. Echocardiogram and carotid Doppler ultrasounds have been ordered for further evaluation. Cardiology was consulted by the ED physician and their input is greatly appreciated. Blood pressures were reviewed and they have been stable. Apnea link ordered to screen for sleep apnea given concerns for the same as detailed in HPI. His home medications will be reviewed and resumed as appropriate. 09/13/2022:Hypertension presented with exertional shortness of breath. Was tachycardic at 130s with recurrence of severe exertional shortness of breath. Along with lightheadedness. No prior history of coronary artery disease. Former smoker. Vitals stable in the ER. EKG without acute ST-T changes. Labs unremarkable. Troponin negative. Chest x-ray with lingular opacities may represent atelectasis or pneumonia. History of stress test in the past which was negative. Echo with no significant valvular abnormality normal ejection fraction. Carotid Doppler and event monitor discharge cardiology consulted apnea link with AHI of 10.3. Need to rule out sleep apnea and needs sleep study as an outpatient basis. Stress echo planned in a.m. 09/13 Patient denies chest pain, shortness breast, palpitation. Patient is afebrile hemodynamic Stable, cardiac stress test today is negative of cardiac ischemia. Continue current medications, cardiac event monitor is ordered per airplane pilot. Subjective Date/time seen: 09/14/22 10:45 Interval history: Hypertension presented with exertional shortness of breath. Was tachycardic at 130s with recurrence of severe exertional shortness of breath. Along with lightheadedness. No prior history of coronary artery disease. Former smoker. Vitals stable in the ER. EKG without acute ST-T changes. Labs unremarkable. Troponin negative. Chest x-ray with lingular opacities may represent atelectasis or pneumonia. History of stress test in the past which was negative. Echo carotid Doppler done, and unremarkable. Cardiac distress tone today, does reveal cardiac ischemia. Cardio patient is hemodynamically stable, afebrile. Patient will be discharged home per airplane pilot's recommendation Exam Narrative: GENERAL: The patient is well developed, not in acute distress HEENT: Nonicteric sclerae, PERRLA, EOMI. Oropharynx clear. Moist mucous membranes. Conjunctivae appear well perfused. CHEST: Chest wall is nontender. HEART: Regular rate and rhythm without murmur, rubs, or gallops LUNGS: Clear to auscultation bilaterally. no respiratory distress ABDOMEN: Soft, positive bowel sounds, non-tender, no organomegaly. SKIN: No rash, no excessive bruising, petechiae, or purpura. NEUROLOGIC: Cranial nerves II-XII intact, alert and oriented x 3, no gross motor deficits EXTREMITIES: no edema, cyanosis
[2022-09-14 12:00] VITALS: PULSE 94
--- NOTE | 2022-09-14 13:10 | PM.DS ---
DS: Admitting Diagnosis Discharge Date Today Admitting Diagnosis (1) Lightheadedness: ?Code(s): R42 - Dizziness and giddiness ?Status:?Acute (2) Exertional dyspnea: ?Code(s): R06.09 - Other forms of dyspnea ?Status:?Acute (3) Hypertension: ?Code(s): I10 - Essential (primary) hypertension ?Status:?Acute (4) Suspected sleep apnea: ?Code(s): R29.818 - Other symptoms and signs involving the nervous system ?Status:?Acute DS: Discharge Diagnosis Discharge Diagnosis (1) Lightheadedness: Code(s): R42 - Dizziness and giddiness Status: Acute (2) Exertional dyspnea: Code(s): R06.09 - Other forms of dyspnea Status: Acute (3) Hypertension: Code(s): I10 - Essential (primary) hypertension Status: Acute (4) Suspected sleep apnea: Code(s): R29.818 - Other symptoms and signs involving the nervous system Status: Acute DS: Summary Hospital Course Reason for hospitalization: shortness of breath, lightheadedness, and racing heart while walking the last couple of days Hospital Course: The patient presented to the emergency department for evaluation of shortness of breath, lightheadedness, and racing heart while walking the last couple of days as per HPI. Labs, imaging, EKG, and all reports were personally reviewed. Etiology of his symptoms is not entirely clear. 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 Labs do not seem to indicate that he is dehydrated either. Is possible that he may have a cardiac dysrhythmia causing his symptoms and he is being monitored on telemetry; it may be prudent to send him home with an event monitor on discharge. Echocardiogram and carotid Doppler ultrasounds have been ordered for further evaluation. Cardiology was consulted by the ED physician and their input is greatly appreciated. Blood pressures were reviewed and they have been stable. Apnea link ordered to screen for sleep apnea given concerns for the same as detailed in HPI. His home medications will be reviewed and resumed as appropriate. 09/13/2022:Hypertension presented with exertional shortness of breath. Was tachycardic at 130s with recurrence of severe exertional shortness of breath. Along with lightheadedness. No prior history of coronary artery disease. Former smoker. Vitals stable in the ER. EKG without acute ST-T changes. Labs unremarkable. Troponin negative. Chest x-ray with lingular opacities may represent atelectasis or pneumonia. History of stress test in the past which was negative. Echo with no significant valvular abnormality normal ejection fraction. Carotid Doppler and event monitor discharge cardiology consulted apnea link with AHI of 10.3. Stress echo planned in a.m. 09/14 Patient denies chest pain, shortness breast, palpitation. Patient is afebrile hemodynamic Stable, cardiac stress test today is negative of cardiac ischemia. Continue current medications, cardiac event monitor is ordered per unemployment insurance hearing officer. Patient needs to rule out sleep apnea and needs sleep study as an outpatient basis, patient needs see primary care doctor for scheduling sleeping study. Time Spent with Patient Time attestation: Total time spent providing and/or coordinating discharge services: Exam Narrative: GENERAL: The patient is well developed, not in acute distress HEENT: Nonicteric sclerae, PERRLA, EOMI. Oropharynx clear. Moist mucous membranes. Conjunctivae appear well perfused. CHEST: Chest wall is nontender. HEART: Regular rate and rhythm without murmur, rubs, or gallops LUNGS: Clear to auscultation bilaterally. no respiratory distress ABDOMEN: Soft, positive bowel sounds, non-tender, no organomegaly. SKIN: No rash, no excessive bruising, petechiae, or purpura. NEUROLOGIC: Cranial nerves II-XII intact, al
--- NOTE | 2022-09-14 13:16 | PM.PNCARD ---
Progress Note: A&P Assessment and Plan (1) Lightheadedness: Code(s): R42 - Dizziness and giddiness Status: Acute Assessment and Plan: Uncertain etiology.? Possibly dehydration versus high blood pressure.? Cannot exclude arrhythmia. TTE 09/13/2022: LVEF >70%, mild TR. No arrhythmias on inpatient tele. Carotid artery ultrasound without significant carotid artery disease. Ordered outpatient 30 day event monitor. Will arrange for outpatient follow up in our clinic. (2) Hypertension: Code(s): I10 - Essential (primary) hypertension Status: Acute Assessment and Plan: Continue Lisinopril for now (3) Exertional dyspnea: Code(s): R06.09 - Other forms of dyspnea Status: Acute Assessment and Plan: Stress echo negative for ischemia. (4) Family history of coronary artery disease: Code(s): Z82.49 - Family history of ischemic heart disease and other diseases of the circulatory system Status: Acute (5) Palpitations: Code(s): R00.2 - Palpitations Status: Acute Assessment and Plan: Outpatient dog bather Plan Okay for discharge from a cardiac standpoint. Will arrange for outpatient clinic follow-up. Recommendations/plan discussed with Hospitalist, Dr. King. Subjective Date/time seen: 09/14/22 13:16 Interval history: Reason for visit: Dizziness, dyspnea on exertion HPI: Patient is a 52-year-old who has a history of high blood pressure and family history of coronary disease.? He did see Dr. Castellanos several years ago and had a negative stress test performed at that time.? He presented hospital because of a couple day history of exertional symptoms.? And feeling off.? Two days ago he started to walk on his sub division into a 2 mi loop.? During that walk he felt lightheaded and short of breath.? He did not feel right and he turned around started to walk back.? He felt like he could pass out now lasted for about 5 seconds.? He did call 911 but at that point he was close to home and he decided not to pursue emergency treatment at that point.? However he arrived home his blood pressure is 144/91 heart rate was 129.? Gradually over time his heart rate did improve.? The rest of that day he did not do much activity and felt relatively okay.? There was appear a time when she could not focus during the initial event.? The next day he had another similar episode also while walking.? His color was reportedly also poor as he looked pale.? Blood pressure 166/101 heart rate was 62 at that time.? He did have shortness of breath.? No chest pain, syncope, paroxysmal nocturnal dyspnea.? No significant edema.? Because he had 2 710s on [id number] days, he decided to come to the hospital floor for evaluation.? EKG is normal.? Troponins are unremarkable. Date of service 09/14: No acute events overnight. Stress echo today. Review of Systems Review of Systems: All systems reviewed & are unremarkable except as noted in HPI and below (HPI) Exam Const: General: comfortable and no acute distress HENMT: Mouth: Yes moist mucous membranes Eyes: General: appearance normal, both eyes and all related structures Sclera: sclerae normal Neck: Neck: supple Resp: Effort & Inspection: normal respiratory effort Auscultation: clear to auscultation bilaterally Cardio: Rate: regular rate Rhythm: regular rhythm Skin: General skin exam: normal color Neuro: Speech: normal speech Extrem: General: normal to inspection Psych: Mental Status: mental status grossly normal Affect: normal affect Objective Data Vital Signs Vital Signs: Vital Signs - 24 hr 09/13/22 14:00 09/13/22 16:00 09/13/22 20:00 Temperature 36.6 C Pulse Rate 65 69 Respiratory Rate 18 Blood Pressure 126/74 Pulse Oximetry 98 Oxygen Delivery Room Air 09/13/22 21:32 09/13/22 20:00 09/14/22 00:00 Temperature 36.2 C L Pulse Rate 64 66 60 Respiratory Rate 14 Blood Pressure 140/80 Puls
== END 2022-09-14 13:35 | disposition home or self-care (01) ==
LOC: ANHED 15:26 → ANH3MEDSUR 17:35
PROVIDERS: Internal Medicine; Physician Assistant; Admitting Provider Student in an Organized Health Care Education/Training Program; Emergency Provider Emergency Medicine; PCP Family Medicine Sports Medicine; Visit Provider Hospitalist
DX: R42 Dizziness and giddiness (principal); R06.09 Other forms of dyspnea; I10 Essential (primary) hypertension; R29.818 Other symptoms and signs involving the nervous system; R00.0 Tachycardia, unspecified; I35.8 Other nonrheumatic aortic valve disorders; F10.90 Alcohol use, unspecified, uncomplicated; R91.8 Other nonspecific abnormal finding of lung field; Z82.49 Family history of ischemic heart disease and other diseases of the circulatory system; Z79.82 Long term (current) use of aspirin; Z79.899 Other long term (current) drug therapy; Z87.891 Personal history of nicotine dependence
CPT/HCPCS: 36415; 71046; 80048; 80053; 83735; 83880; 84443; 84484; 85025; 85027; 85055; 85380; 85610; 85730; 93005; 93351; 93880; 94762; 96361; 96374; 99285; A9270; C8929; G0378; J7030; Q9957

== ENCOUNTER 2023-01-29 23:25 | Emergency (ER) | payer OTHER, SELFPAY ==
--- NOTE | ~2023-01-29 | XR_ITS ---
EXAMINATION: XR chest 1V portable DATE: 01/30/2023 00:32 INDICATION: Hypertension. TECHNIQUE: A single frontal view of the chest was obtained. COMPARISON: Chest 2 views 09/12/2022 FINDINGS: There is mild atelectasis in left lower lung zone. No pleural effusion or pneumothorax. The heart size is normal. IMPRESSION: 1. Mild atelectasis in left lower lung zone. Reviewed, dictated and finalized at location [facility]
[2023-01-29 23:25] VITALS: BP 152/98; PULSE 70; RESP 16; TEMP 36.6; O2SAT 100
--- NOTE | 2023-01-30 | ECG_ITS ---
Measurements Intervals [place] Rate: 74 P: 58 MN: 167 QRS: 29 QRSD: 98 T: 31 QT: 367 QTc: 408 Interpretive Statements SINUS RHYTHM DELAYED PRECORDIAL R/S TRANSITION BORDERLINE ECG COMPARED TO ECG 09/12/2022 13:44:47 NO SIGNIFICANT CHANGES Electronically Signed On 01-30-2023 7:45:02 FLEX O WRITER OPERATOR by Ok Bhatt D.O.
[2023-01-30 00:15] LABS: Ethanol < 10 mg/dL (<10)
[2023-01-30 00:19] LABS: Basophils Percent Auto 0.5 % (0.2-1.2); Eosinophils Absolute Auto 0.2 K/mm3 (0-0.3); Eosinophils Percent Auto 3.8 % (0-4.4); Hematocrit 42.7 % (42.0-52.0); Hemoglobin 14.4 g/dL (14.0-18.0); Immature Granulocyte Absolute 0.06 K/mm3 (0.00-0.031); Immature Granulocyte Percent A 1.1 % (0-0.5); Immature Platelet Fraction Pct 3.3 % (0.9-11.2); Lymphocytes Absolute Auto 1.82 K/mm3 (0.9-3.2); Lymphocytes Percent Auto 32.9 % (18.3-44.2); Mean Corpuscular HGB Conc 33.7 g/dl (32-36); Mean Corpuscular Hemoglobin 30.9 pg (26-34); Mean Corpuscular Volume 91.6 fl (80-100); Mean Platelet Volume 10.3 fl (7.4-10.4); Monocytes Absolute Auto 0.5 K/mm3 (0.1-0.6); Monocytes Percent Auto 8.7 % (2.6-8.5); Neutrophils Absolute Auto 2.9 K/mm3 (1.3-6.7); Platelet Count Result 129 k/mm3 (150-375); Red Blood Count 4.66 M/mm3 (4.6-6.20); Red Cell Distribution Width 12.5 % (11.5-14.5); White Blood Count 5.5 K/mm3 (4.5-10.0)
[2023-01-30 00:27] LABS: Troponin I < 0.012 ng/mL (0.000-0.034)
[2023-01-30 00:31] LABS: Alanine Aminotransferase 36 U/L (6-50); Albumin Level 4.2 g/dL (3.5-5.1); Alkaline Phosphatase 47 U/L (38-126); Anion Gap 9 mmol/L (8-16); Aspartate Amino Transferase 35 U/L (17-59); Bilirubin,Total 0.7 mg/dL (0.2-1.3); Blood Urea Nitrogen 16 mg/dL (9-20); Calcium 9.2 mg/dL (8.4-10.2); Carbon Dioxide 26 mmol/L (22-30); Chloride 104 mmol/L (98-107); Estimated CRCL calculation 112 ml/min; Estimated Glomerular Filt Rate > 60; Glucose 114 mg/dL (65-110); Potassium 3.9 mmol/L (3.4-5.0); Sodium 139 mmol/L (137-145)
[2023-01-30 02:01] VITALS: BP 124/74; PULSE 60; RESP 16; O2SAT 98
--- NOTE | 2023-01-30 02:41 | ED.GENADULT ---
HPI - General Adult General Chief complaint: Recheck/Abnormal Lab/Rx Stated complaint: uncontrollable shaking Time Seen by Provider: 01/29/23 23:35 History of Present Illness HPI narrative: patient brought to the emergency department by EMS. He had acute onset of not feeling well and hypertension home. The more he checked his blood pressure the higher became. That is ordered with generalized extremity shaking and tingling in his fingers. Patient denies ever having chest pain or shortness of breath. His blood pressure reached 190s systolic at home. He had a cardiac catheterization last week without stent placement. His doctor is switching him to losartan from lisinopril due to side effects of lisinopril. Overall he is feeling better. Related Data Home Medications Medication Instructions Recorded Confirmed aspirin 81 mg tablet,delayed 81 mg PO DAILY 12/31/20 09/12/22 release (Adult Low Dose Aspirin) cholecalciferol (vitamin D3) 25 25 mcg PO DAILY 12/31/20 09/12/22 mcg (1,000 unit) capsule umpkwhye-hhtfwzcm-croqk acid 400 1 tablet PO DAILY 12/31/20 09/12/22 mcg-vit K 20 mcg-lycop 300 mcg tablet (One-A-Day Men's Multivitamin) Allergies Allergy/AdvReac Type Severity Reaction Status Date / Time No Known Allergies Allergy Mild Verified 01/29/23 23:29 Review of Systems Review of Systems: review of systems negative except which is documented in the HPI [facility] Past Medical History Medical History Acid reflux Arthritis Hypertension Surgical History Surgical History No pertinent past surgical history Family History Family History Sibling Family history of cardiovascular disease Diabetes mellitus Family history of coronary artery disease Arthritis Father Family history of cardiovascular disease Acute myocardial infarction Hypertension Heart disease Son Asthma Social History Social History Social History: Surrogate medical decision maker: Nettie Salgado, significant other. Code status: Full code. Smoking packs per day: 0.5 Smoking cigarettes per day: 10.0 Years smoked: 2 Smoking pack-years: 1.00 Smoking status: Former smoker Tobacco type: cigarettes Second hand tobacco smoke exposure: No Smoking end date: 03/13/93 Alcohol intake: current Drinks per week: 12 Alcohol use details: 7 to 12 drinks a week. Substance use: never Substance use type: does not use Lack of Transportation: No Lack of Food: Never True Current Housing: I Have Housing Concerned About Future Housing: No Difficulty Paying Gas/Electric Bills: No Difficulty Paying for Meds: No Currently Unemployed: No Education: Associate Degree Difficulty w/ Childcare or Family Care: No Additional living arrangements comments: Lives in [place]. 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 Spiritual care concerns: No Exam Narrative: GENERAL: Well-appearing, well-nourished, and in no acute distress. HEAD: Normocephalic, atraumatic. EYES: PERRLA and EOMI. ENT: Nares clear, no rhinorrhea or epistaxis. Mucous membranes moist. NECK: Supple. CHEST: Clear to auscultation. No respiratory distress. HEART: Regular rate and rhythm. ABDOMEN: Soft, nontender, nondistended. EXTREMITIES: Normal range of motion. No edema. SKIN: Warm, dry, no rash. NEURO: No focal deficits. Alert and oriented x3. PSYCH: Normal mood and affect. Course Course Emergency Course: EKG ordered and reviewed. Normal sinus rhythm without signs of ischemia labs including initial troponin unremarkable due to cardiac concerns, repeat troponin pending Vital Signs Vital signs: Vital Signs Temperature 36.6 C 01/29/23 23:25 Pulse Rate 70 01/29/23 23:25
[2023-01-30 03:00] LABS: Troponin I < 0.012 ng/mL (0.000-0.034)
[2023-01-30 04:20] VITALS: BP 126/84; PULSE 66; RESP 15; O2SAT 100
== END 2023-01-30 04:21 | disposition home or self-care (01) ==
PROVIDERS: Emergency Provider Emergency Medicine; PCP Family Medicine Sports Medicine
DX: R25.8 Other abnormal involuntary movements (principal); I10 Essential (primary) hypertension; K21.9 Gastro-esophageal reflux disease without esophagitis; M19.90 Unspecified osteoarthritis, unspecified site; Z87.891 Personal history of nicotine dependence; Z79.82 Long term (current) use of aspirin; Z79.899 Other long term (current) drug therapy; R94.31 Abnormal electrocardiogram [ECG] [EKG]
CPT/HCPCS: 36415; 71045; 80053; 80307; 84484; 85025; 85055; 93005; 99284